=== PATIENT | male | born 1960 | race Caucasian/White ===

== ENCOUNTER 2016-08-14 07:21 | Emergency (ER) | payer OTHER ==
[2016-08-14 07:26] VITALS: TEMP 97.5
[2016-08-14] MEDS ORDERED: NS 1,000 ML IV ONE (07:37)
[2016-08-14] MEDS ORDERED: ONDANSETRON 4 MG/2 ML VIAL IVP ONE (07:37)
[2016-08-14] MEDS ORDERED: PANTOPRAZOLE SODIUM 40 MG in NS 100 ML IV ONE (07:38)
--- NOTE | 2016-08-14 07:45 | EDPHY ---
H & P Stated Complaint: n/v upper abd pain Time Seen by Provider: 08/14/16 07:27 HPI/ROS: Chief Complaint: Abdominal pain, nausea, vomiting HPI: 56-year-old male who is visiting from out of town for son's graduation from the University woke up at 2 o'clock this morning with epigastric pain. He pain is persisted since that time. He has a history of some reflux type symptoms with her last this long. He took some Pepto-Bismol and some Alexandra[place] with no relief. He did have some nausea and vomited twice but is just a small amount. No diarrhea. No hematemesis, hematochezia or melena. Did eat some sushi and drink some costello pain last night. No substernal chest pressure. No shortness of breath. There are no aggravating or alleviating factors. Pain is about a 5/10. ROS: 10 point Review of Systems is negative except as noted in the HPI. PMH: Appendectomy, shoulder and elbow surgery Medications: None Allergies: None Social History: No smoking, occasional alcohol, no recreational drug use Family History: No family history of coronary artery disease or blood clotting disorder Physical Exam: Gen: Awake, Alert, No Distress HEENT: Nose: no rhinorrhea Eyes: PERRLA, EOMI Mouth: Moist mucosa Neck: Supple, no JVD Chest: nontender, lungs clear to auscultation Heart: S1, S2 normal, no murmur Abd: Soft, non-tender, no guarding Back: no CVA tenderness, no midline tenderness Ext: no edema, non-tender Skin: no rash Neuro: CN II-XII intact, Sensation grossly intact, Strength 5/5 in bilateral upper and lower extremities - Personal History Current Tetanus/Diphtheria Vaccine: Yes - Medical/Surgical History Hx Asthma: No Hx Chronic Respiratory Disease: No Hx Diabetes: No Hx Cardiac Disease: No Hx Renal Disease: No Hx Cirrhosis: No Hx Alcoholism: No Hx HIV/AIDS: No Hx Splenectomy or Spleen Trauma: No Other PMH: r shoulder and elbow surg/appy - Social History Smoking Status: Never smoked Constitutional: Initial Vital Signs Temperature (C) 36.4 C 08/14/16 07:24 Heart Rate 52 L 08/14/16 07:24 Respiratory Rate 18 08/14/16 07:24 Blood Pressure 175/86 H 08/14/16 07:24 O2 Sat (%) 99 08/14/16 07:24 O2 Delivery Mode Room Air Allergies/Adverse Reactions: No Known Allergies Allergy (Unverified 08/14/16 07:23) Home Medications: Medication Instructions Recorded NK [No Known Home Meds] 08/14/16 Medical Decision Making - Diagnostics EKG Interpretation: ECG time 7:55 a.m.: Sinus rhythm with a rate of 52, normal axis, normal intervals, no ST or T-wave changes. Impression: Normal ECG ED Course/Re-evaluation: 804 a ECG is normal. Patient is feeling better after the Protonix. Awaiting chemistry and troponin. Chemistry included troponin are normal. Patient is feeling much better. Will discharge home with follow-up with primary care physician. No evidence of acute coronary syndrome or other cardiac process at this time. - Data Points Laboratory Results: Laboratory Results 08/14/16 07:40 08/14/16 07:40 08/14/16 08/14/16 07:40 07:40 WBC 8.90 10^3/uL 10^3/uL (3.80-9.50) RBC 5.47 10^6/uL 10^6/uL (4.40-6.38) Hgb 16.5 g/dL g/dL (13.7-17.5) Hct 48.9 % % (40.0-51.0) MCV 89.4 fL fL (81.5-99.8) MCH 30.2 pg pg (27.9-34.1) MCHC 33.7 g/dL g/dL (32.4-36.7) RDW 13.0 % % (11.5-15.2) Plt Count 245 10^3/uL 10^3/uL (150-400) MPV 10.0 fL fL (8.7-11.7) Neut % (Auto) 82.2 % H % (39.3-74.2) Lymph % (Auto) 12.2 % L % (15.0-45.0) [place] % (Auto) 4.4 % L % (4.5-13.0) Eos % (Auto) 0.2 % L % (0.6-7.6) Baso % (Auto) 0.4 % % (0.3-1.7) Nucleat RBC Rel Count 0.0 % % (0.0-0.2) Absolute Neuts (auto) 7.31 10^3/uL H 10^3/uL (1.70-6.50) Absolute Lymphs (auto) 1.09 10^3/uL 10^3/uL (1.00-3.00) Absolute Monos (auto) 0.39 10^3/uL 10^3/uL (0.30-0.80) Absolute Eos (auto) 0.02 10^3/uL L 10^3/uL (0.03-0.40) Absolute Basos (auto) 0.04 10^3/uL 10^3/uL (0.02-0.10) Absolute Nucleated RBC 0.00 10^3/uL 10^3/uL (0-0.01) Immature Gran % 0.6 % % (0.0-1.1) Immature Gran # 0.05 10^3/uL 10^3/uL (0.00-0.10) Sodium 140 mEq/L mEq/L (134-144) Potassium 4.2 mEq/L mEq/L (3.5-5.2) Chloride 106 mEq/L mEq/L (97-110) Carbon Dioxide 22 mEq/l mEq/l (22-31) Anion Gap 12 mEq/L mEq/L (8-16) BUN 14 mg/dL mg/dL (7-23) Creatinine 0.8 mg/dL mg/dL (0.7-1.3) Estimated GFR > 60 Glucose 124 mg/dL H mg/dL (70-100) Calcium 9.5 mg/dL mg/dL (8.5-10.4) Total Bilirubin 1.1 mg/dL mg/dL (0.1-1.4) Conjugated Bilirubin 0.4 mg/dL mg/dL (0.0-0.5) Unconjugated Bilirubin 0.7 mg/dL mg/dL (0.0-1.1) AST 27 IU/L IU/L (17-59) ALT 46 IU/L IU/L (21-72) Alkaline Phosphatase 77 IU/L IU/L (38-126) Troponin I < 0.012 ng/mL ng/mL (0-0.034) Total Protein 7.4 g/dL g/dL (6.3-8.2) Albumin 4.6 g/dL g/dL (3.5-5.0) Lipase 96.0 IU/L IU/L (23-300) Medications Given: Discontinued Medications Sodium Chloride (Ns) 1,000 mls @ 0 mls/hr IV ONCE ONE PRN Reason: Wide Open Stop: 08/14/16 07:38 Last Admin: 08/14/16 07:49 Dose: 1,000 mls Pantoprazole Sodium 40 mg/ (Sodium Chloride) 100 mls @ 200 mls/hr IV EDNOW ONE Stop: 08/14/16 08:07 Last Admin: 08/14/16 07:50 Dose: 100 mls Ondansetron HCl (Zofran) 4 mg IVP EDNOW ONE Stop: 08/14/16 07:38 Last Admin: 08/14/16 07:50 Dose: 4 mg Departure - Departure Disposition: Home, Routine, Self-Care Clinical Impression: GERD (gastroesophageal reflux disease) Condition: Good Instructions: Diet for Stomach Ulcers and Gastritis (ED), Gastroesophageal Reflux Disease (ED) Additional Instructions: Start taking famotidine [id number] daily as needed for reflux symptoms. Follow up with your primary care physician when you return back to [place] in 3-4 days. Return to the emergency depart for increasing pain, shortness of breath, fevers , chills, uncontrolled vomiting, or any other concerns. Referrals: MICHAEL RAMIREZ [Other] - As per Instructions
[2016-08-14 07:47] LABS: % IMMATURE GRANULYOCYTES 0.6 % (0.0-1.1); ABSOLUTE IMMATURE GRANULOCYTES 0.05 10^3/uL (0.00-0.10); ADD DIFF? NO; ADD MORPH? NO; ADD SCAN? NO; ATYPICAL LYMPHOCYTE FLAG 10 (0-99); FRAGMENT RBC FLAG 0 (0-99); HEMATOCRIT 48.9 % (40.0-51.0); HEMOGLOBIN 16.5 g/dL (13.7-17.5); LEFT SHIFT FLG 0 (0-99); LIPEMIA HEMOLYSIS FLAG 80 (0-99); MEAN CELL HEMOGLOBIN 30.2 pg (27.9-34.1); MEAN CELL HEMOGLOBIN CONCENTR. 33.7 g/dL (32.4-36.7); MEAN CELL VOLUME 89.4 fL (81.5-99.8); PLATELET CLUMPS FLAG 0 (0-99); PLATELET COUNT 245 10^3/uL (150-400); RED BLOOD CELL COUNT 5.47 10^6/uL (4.40-6.38)
--- NOTE | 2016-08-14 07:58 | CPEKG ---
Heart Rate: 52 RR Interval: 1154 P-R Interval: 164 QRSD Interval: 100 QT Interval: 460 QTC Interval: 428 P [place]: 48 QRS [place]: 66 T Wave [place]: 32 EKG Severity - NORMAL ECG - EKG Impression: SINUS RHYTHM Electronically Signed By: Ge Eli 15-Aug-2016 21:56:26
[2016-08-14 07:59] VITALS: RESP 16
[2016-08-14 08:32] LABS: ALANINE AMINOTRANSFERASE 46 IU/L (21-72); ALBUMIN 4.6 g/dL (3.5-5.0); ALKALINE PHOSPHATASE 77 IU/L (38-126); ANION GAP 12 mEq/L (8-16); ASPARTATE AMINOTRANSFERASE 27 IU/L (17-59); BILIRUBIN,TOTAL 1.1 mg/dL (0.1-1.4); BILIRUBIN-CONJUGATED 0.4 mg/dL (0.0-0.5); BILIRUBIN-UNCONJUGATED 0.7 mg/dL (0.0-1.1); CALCIUM 9.5 mg/dL (8.5-10.4); CARBON DIOXIDE 22 mEq/l (22-31); CHLORIDE 106 mEq/L (97-110); CREATININE 0.8 mg/dL (0.7-1.3); GLOMERULAR FILTRATION RATE > 60; GLUCOSE 124 mg/dL (70-100); POTASSIUM 4.2 mEq/L (3.5-5.2); SODIUM 140 mEq/L (134-144); TOTAL PROTEIN 7.4 g/dL (6.3-8.2)
[2016-08-14 08:43] LABS: TROPONIN I < 0.012 ng/mL (0-0.034)
[2016-08-14 09:15] VITALS: BP 140/87; PULSE 54; O2SAT 97
== END 2016-08-14 09:15 | disposition home or self-care (01) ==
DX: K21.9 Gastro-esophageal reflux disease without esophagitis (principal)
CPT/HCPCS: 96365; J2405